=== PATIENT | female | born 1995 | race Caucasian/White ===

== ENCOUNTER 2024-05-11 21:56 | Emergency (ER) | payer BC ==
[2024-05-11] MEDS ORDERED: Ipratropium/Albuterol 3 ML NEB ONE (23:05)
[2024-05-11 23:35] LABS: #Basophils 0.06 10x3/uL (0.0-0.2); #Eosinophils 0.49 10x3/uL (0.0-0.5); #Monocytes 0.65 10x3/uL (0.0-1.1); #Neutrophils 4.72 10x3/uL (1.5-8.4); %Basophils 0.7 % (0.0-2.0); %Eosinophils 5.6 % (0.0-6.0); %Lymphocytes 31.8 % (18.0-47.0); %Monocytes 7.5 % (0.0-10.0); %Neutrophils 54.2 % (40.0-75.0); Hematocrit 37.4 % (34.9-44.5); Hemoglobin 13.1 g/dL (12.0-15.5); Mean Corpuscular Hemoglobin 28.7 pg (27.0-33.0); Mean Platelet Volume 10.9 fL (7.4-10.4); Platelet Count 232 10x3/uL (150-450); RBC Distribution Width 13.6 % (11.5-14.5); Red Blood Cell (RBC) Count 4.56 10x6/uL (3.90-5.03); White Blood Cell (WBC) Count 8.71 10x3/uL (3.5-10.5)
[2024-05-11 23:38] LABS: BHCG - Serum Negative (NEGATIVE); Pregs Control Background? CLEAR/WHITE (CLR/WHITE); Pregs Control Bar Appear? YES (CONTROL BAR)
[2024-05-11 23:45] LABS: ALT (SGPT) 10 U/L (Less than 34); AST (SGOT) 15 U/L (11-34); Albumin 4.3 g/dL (3.1-4.5); Alkaline Phosphatase 57 U/L (40-110); Anion Gap 16 mmol/L (10-20); BUN (Urea Nitrogen) 15 mg/dL (7.0-18.7); Bilirubin, Total 0.4 mg/dL (0.3-1.2); Calc. Creatinine Clearance 0 mL/min (70-130); Calcium 9.6 mg/dL (7.8-10.44); Carbon Dioxide 19 mmol/L (22-29); Chloride 110 mmol/L (98-107); Estimated GFR 119; Globulin 2.9 g/dL (2.4-3.5); Glucose 94 mg/dL (70-105); Potassium 3.9 mmol/L (3.5-5.1); Protein, Total 7.2 g/dL (6.0-8.3); Sodium 141 mmol/L (136-145)
[2024-05-11 23:51] LABS: Troponin I Less than 0.010 ng/mL (< 0.028)
== END 2024-05-12 00:22 | disposition home or self-care (01) ==
LOC: CSHERS 21:56
DX: J45.901 Unspecified asthma with (acute) exacerbation (principal); J06.9 Acute upper respiratory infection, unspecified; Z79.51 Long term (current) use of inhaled steroids
CPT/HCPCS: 36415; 71045; 80053; 84484; 84703; 85025; 87428; 93005; 94640; 94760; J7620